=== PATIENT | female | born 2000 | race Two or more races ===

== ENCOUNTER 2023-07-19 14:09 | Emergency (ER) | payer OTHER ==
[~2023-07-19] VITALS: Ht 152.4 cm; Wt 59.0 kg
[~2023-07-19 14:09] MED LIST: ZYRTEC10 M3
== END 2023-07-19 19:16 | disposition home or self-care (01) ==
LOC: ER 14:09
PROVIDERS: Nurse Practitioner Family
DX: U07.1 COVID-19 (principal); J06.9 Acute upper respiratory infection, unspecified; Z88.0 Allergy status to penicillin; Z91.013 Allergy to seafood

== ENCOUNTER → 2024-10-26 08:15 | Outpatient (CLI) | payer OTHER | END | disposition home or self-care (01) | LOC: PRENATAL 08:15 | PROVIDERS: ATTEND Obstetrics & Gynecology Maternal & Fetal Medicine | DX: O36.80X0 Pregnancy with inconclusive fetal viability, not applicable or unspecified (principal); Z36.82 Encounter for antenatal screening for nuchal translucency; Z14.8 Genetic carrier of other disease; Z3A.14 14 weeks gestation of pregnancy ==

== ENCOUNTER 2024-12-09 12:44 | Outpatient (CLI) | payer OTHER | END 2024-12-09 16:29 | disposition home or self-care (01) | LOC: PRENATAL 12:44 | PROVIDERS: ATTEND Obstetrics & Gynecology Maternal & Fetal Medicine | DX: O44.00 Complete placenta previa NOS or without hemorrhage, unspecified trimester (principal); O36.1999 Maternal care for other isoimmunization, unspecified trimester, other fetus; Z3A.20 20 weeks gestation of pregnancy ==

== ENCOUNTER 2025-07-19 18:32 | Emergency (ER) | payer OTHER ==
[~2025-07-19] VITALS: Ht 152.4 cm; Wt 65.8 kg
[2025-07-19 18:56] VITALS: BP 134/90; O2SAT 98
[2025-07-19] MEDS ORDERED: WELLBUTRIN XL150 M1 (18:56)
[2025-07-19] MEDS ORDERED: KETOROLAC TROMETHAMINE 30 MG VIAL IM STA (19:59)
[2025-07-19] MEDS ORDERED: KETOROLAC TROMETHAMINE 30 MG VIAL ONE (20:10)
[2025-07-19 20:34] LABS: BASO % 0.2 % (0.1-1.2); EOS # 0.10 (0.04-0.54); EOS % 1.0 % (0.7-7.0); LYMPH # 0.83 (1.18-3.74); LYMPH % 8.7 % (19.3-53.1); MEAN PLATELET VOLUME 10.80 fl (9.4-12.4); MONO # 1.03 (0.24-0.82); MONO % 10.8 % (4.7-12.5); NEUT # 7.53 (1.56-6.13); NEUT % 79.0 % (34.0-71.1); RED CELL DISTRIBUTION WIDTH 12.4 % (11.6-14.4)
[2025-07-19 20:45] LABS: COVID-19 AG POSITIVE (NEGATIVE)
== END 2025-07-19 21:12 | disposition home or self-care (01) ==
LOC: ER 18:32
PROVIDERS: General Practice
DX: U07.1 COVID-19 (principal); J06.9 Acute upper respiratory infection, unspecified; Z88.0 Allergy status to penicillin; Z91.013 Allergy to seafood